=== PATIENT | male | born 1950 | race Caucasian/White ===

== ENCOUNTER 2024-09-21 10:07 | Day surgery (SDC) | payer OTHER ==
[~2024-09-21] VITALS: Ht 177.8 cm; Wt 92.7 kg
[~2024-09-21 10:07] MED LIST: AMOCLA875 PO; EPINEPhrine HCl 1 MG / ML 30ML Vial ONE; Lactated Ringer's 1,000 ML IV ONE; Lidocaine 2%-Epineph 1:200000 20 ML SDV ONE
[2024-09-21] MEDS ORDERED: propofoL 20 ML IV ONE (10:20)
[2024-09-21] MEDS ORDERED: FentaNYL Citrate 50 MCG/ML 2 ML Injection ONE (10:20)
[2024-09-21] MEDS ORDERED: Ondansetron HCl 2 MG / ML 2ML Vial ONE (10:20)
[2024-09-21] MEDS ORDERED: Dexamethasone Sod Phos 10 MG/ML 1ML VIAL ONE (10:20)
[2024-09-21] MEDS ORDERED: Sugammadex Sodium 200 MG/2ML SDV (100 MG/ML) ONE (10:20)
[2024-09-21] MEDS ORDERED: Rocuronium Bromide 10 MG/ML 5ML Injection IV ONE (10:20)
[2024-09-21] MEDS ORDERED: Lactated Ringer's 1,000 ML IV ONE (10:45)
[2024-09-21] MEDS ORDERED: HydrALAZINE HCl 20 MG / ML 1ML Vial ONE (12:10)
[2024-09-21] MEDS ORDERED: ePHEDrine Sulfate 50 MG/ML 1ML Injection ONE (12:11)
[2024-09-21] MEDS ORDERED: Atropine Sulfate 0.4 MG/1 ML Vial ONE (12:17)
--- NOTE | 2024-09-21 12:21 | NUR ---
09/21/24 1221 Mary Erazo SPLINT LOT [phone] EXP 04/17/32
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
[2024-09-21 14:25] VITALS: BP 142/74
== END 2024-09-21 14:25 | disposition home or self-care (01) ==
LOC: ORSCSDS 10:07
PROVIDERS: Otolaryngology
PROC: 09BM0ZZ Excision of Nasal Septum, Open Approach (ICD-10-PCS; principal; 2024-09-21 11:30)
PROC: 09SL0ZZ Reposition Nasal Turbinate, Open Approach (ICD-10-PCS; principal; 2024-09-21 11:30)
DX: J34.2 Deviated nasal septum (principal); J34.3 Hypertrophy of nasal turbinates; G47.33 Obstructive sleep apnea (adult) (pediatric); K21.9 Gastro-esophageal reflux disease without esophagitis; Z79.899 Other long term (current) drug therapy
CPT/HCPCS: J0171; J0360; J0461; J1100; J2405; J2704; J3010; J7120